=== PATIENT | male | born 1970 | race Caucasian/White ===

== ENCOUNTER 2016-12-23 09:27 | Emergency (ER) | payer BC ==
[2016-12-23] MEDS ORDERED: ONDANSETRON 4 MG/2 ML VIAL IVP ONE (09:48)
[2016-12-23] MEDS ORDERED: Sodium Chloride 0.9% 1,000 ML PRIMARY IV ONE (09:48)
--- NOTE | 2016-12-23 09:51 | PDOC ---
Upper Extremity Problem HPI - General Chief Complaint: Upper Extremity Problem/Injury Stated Complaint: POST OP BLEEDING Date Seen by Provider: 12/23/16 Time Seen by Provider: 09:46 Source: POSITIVE: Patient Exam Limitations: POSITIVE: No limitations Nurse's Notes Reviewed & Considered: Yes - History of Present Illness Initial Comments: Patient comes in today with a chief complaint of drainage from a surgical wound , and confusion. This morning he called his sister because he had increased drainage from a incision over his right elbow for ulnar nerve reposition. Is having some pain so he took a 5[address] [place] and when his sister was talking to him he was confused unsure of where he was. By the time he arrived here in the emergency room he was alert and oriented to person place and time. He denies any fever chills or sweats, nausea vomiting or diarrhea, shortness of breath, chest pain, headache. Body Location Affected: REPORTS: Upper Extremity (R) Timing: REPORTS: Abrupt Duration: Unknown Severity: Moderate Quality: REPORTS: Other (Serosanguineous exudate from a surgical wound on his right elbow.) Recent Injury: REPORTS: Yes (Surgical incision.) Context of Injury: REPORTS: Incision Location at Time of Onset: REPORTS: Home Modifying Factors: REPORTS: Nothing Exacerbates Similar Symptoms Previously: No Recent Care Received: Treated by MD, Surgery Any Prior Injuries Related to Current Complaint?: Yes (surgical incision of the right elbow and right wrist.) - Patient Home Medications Home Medications: Home Medications Celecoxib [Celebrex] 200 mg PO BEDTIME 12/23/16 Hydrocodone Bit/Acetaminophen [Hydrocodon-Acetaminoph 7.5-325] 1 tab PO Q4H PRN 12/23/16 - Patient Allergies Allergies/Adverse Reactions: Allergies Allergy/AdvReac Type Severity Reaction Status Date / Time No Known Allergies Allergy Verified 12/23/16 09:39 Past Medical History - heen HEENT History: Denies History Cardiovascular History: Denies History Respiratory History: Denies History Gastrointestinal History: Denies History Genitourinary History: Denies History Endocrine History: Denies History Musculoskeletal History: Denies History Neurological History: Denies History Blood Disorders: Denies History Psychiatric History: Denies History Cancer History: Denies History History of MDRO: No Alcohol Use: Heavy Substance Use Type: None Previous Surgical History: No Anesthesia Reactions: No Malignant Hyperthermia: No Significant Family History: No pertinent family hx ROS - Limitations ROS Limitations: No Limitations Constitution: REPORTS: Denies Symptoms Cardiovascular: REPORTS: Denies Cardiac Symptoms Respiratory: REPORTS: Denies Resp Symptoms Neurological: REPORTS: Denies Neuro Symptoms Gastrointestinal: REPORTS: Nausea Endocrine: REPORTS: Denies Symptoms Musculoskeletal: REPORTS: Denies MS Symptoms Genitourinary: REPORTS: Denies Symptoms Eyes: REPORTS: Denies Symptoms ENT: REPORTS: Denies Symptoms Skin: REPORTS: Excessive Bruising, Other (Serosanguineous exudate from right elbow incision) Lympathic: REPORTS: Denies Lympathic Symptoms Immunologic: POSITIVE: Denies Symptoms Psychiatric: POSITIVE: Denies Psych Symptoms Upper Extremity Problem Exam - General Appearance General Appearance: POSITIVE: Alert, Cooperative, No Acute Distress, No Evidence of Trauma - Upper Extremity Upper Extremity: POSITIVE: Non-Tender, Tenderness, Swelling, Joint Swelling Vascular: POSITIVE: No Vascular Compromise, Full Pulses - Skin Skin: POSITIVE: Normal Color, Warm, Dry, No Rash - Neuro / Psych Peripheral Neuro Exam: POSITIVE: Sensation Normal, Motor Normal Central Neuro Exam: POSITIVE: Oriented to Person, Oriented to Place, Oriented to Time, CN's Normal as Tested, Normal Speech, Normal Cognition, Appropriate Mood, Appropriate Affect - HEENT HEENT: POSITIVE: Head Inspection Nml, Eyes Inspection Nml, Ears Inspection Nml, Nose Inspection Nml, PERRL, EOMI - Neck/Back Neck / Back: POSITIVE: Normal Inspection - Respiratory / CVS Respiratory / CVS: POSITIVE: No Respiratory Distress, Breath Sounds Normal, Regular Rate & Rhythm, Heart Sounds Normal - Abdomen Abdomen: Soft: (All Quadrants), Normal Bowel Sounds: (All Quadrants), Denies Tenderness: (All Quadrants) Upper Ext Problem Progress - Results Reviewed by me Lab Results Reviewed: Yes Lab Results:: Laboratory Results 12/23/16 Range/Units 10:15 WBC 7.78 (4.8-10.8) 10^3/uL RBC 4.45 L (4.70-6.10) 10^6/uL Hgb 13.5 L (14.0-18.0) g/dL Hct 41.2 L (42.0-52.0) % MCV 92.6 H (80-90) FL MCH 30.3 (27-31) PG MCHC 32.8 L (33-37) g/dL RDW Std Deviation 45.9 (39-50) fL RDW Coeff of Carlo 13.9 (11.5-14.5) % Plt Count 223 (140-350) 10*3/uL MPV 9.9 (7.4-12.2) FL Immature Gran % (Auto) 0.4 (0-5) % Neut % (Auto) 67.9 (50-80) % Lymph % (Auto) 21.2 (10-50) % [place] % (Auto) 8.4 (5-15) % Eos % (Auto) 1.5 (0-8) % Baso % (Auto) 0.6 (0-1) % Immature Gran # (Auto) 0.03 10*3/UL Neut # (Auto) 5.28 10*3/UL Lymph # (Auto) 1.65 10*3/uL [place] # (Auto) 0.65 (0.3-0.8) 10*3/UL Eos # (Auto) 0.12 10*3/UL Baso # (Auto) 0.05 10*3/UL WBC Morphology Comment Normal morphology (NORM) Plt Morphology Comment Normal morphology (NORM) RBC Morph Comment Normal morphology (NORM) Sodium 137 (135-145) meq/L Potassium 4.1 (3.8-5.2) meq/L Chloride 106 (98-112) meq/L Carbon Dioxide 22 L (23-33) meq/L Anion Gap 9 (5-20) BUN 13 (7-22) mg/dL Creatinine 0.8 (0.70-1.50) mg/dL Estimated GFR > 60 (>60 ml/min/1.73m(2)) BUN/Creatinine Ratio 16.25 (6-20) Glucose 84 (78-110) mg/dL Calculated Osmolality 282.0 (267-292) mOsm/kg Calcium 8.6 L (8.7-10.7) mg/dL Magnesium 1.8 (1.6-2.4) mg/dL Total Bilirubin 0.4 (0.3-1.2) mg/dL AST 22 (21-57) IU/L ALT 23 (21-72) IU/L Alkaline Phosphatase 62 (38-126) IU/L Total Protein 7.0 (6.1-8.0) g/dL Albumin 4.0 (3.5-4.8) g/dL Globulin 3.0 (2.50-4.10) g/dL Albumin/Globulin Ratio 1.30 (1.3-2.0) mg/g - Patient's Progress Pain Medication Addressed: POSITIVE: Not Applicable Re-Examine Time:: 10:38 Status: POSITIVE: Improved MDM / ED Course: Patient was evaluated, IV started, blood drawn and sent to the lab for studies. Patient received a liter of normal saline, and Zofran. His dizziness and nausea resolved. Findings: CBC shows a slight anemia with hemoglobin of 13-1/2. WBCs are within normal limits at 7. Compensated metabolic panel is unremarkable. Assessment: Postoperative dizziness most likely related to medication and slight dehydration. Plan: Discharge home, hydration, follow-up with orthopedic surgeon in [facility]. - Consult Counseled: POSITIVE: Patient, Family, RE: Lab Results, RE: DX, RE: Need for F/U Patient Care Time - Estimated PCT Patient Care Time (In Minutes): 15 Vital Signs - VS Reviewed Vital Signs Reviewed: Yes Discharge Clinical Impression: Dizziness Discharge Disposition: Discharged to Home Condition: Stable Patient Instructions Given at Discharge: Dizziness (ED)
[2016-12-23 10:17] LABS: BASOPHILS # (AUTO) 0.05 10*3/UL; BASOPHILS % (AUTO) 0.6 % (0-1); EOSINOPHILS % (AUTO) 1.5 % (0-8); HEMATOCRIT 41.2 % (42.0-52.0); HEMOGLOBIN 13.5 g/dL (14.0-18.0); IMM GRAN % (AUTO) 0.4 % (0-5); IMM GRAN# (AUTO) 0.03 10*3/UL; LYMPHOCYTES # (AUTO) 1.65 10*3/uL; LYMPHOCYTES % (AUTO) 21.2 % (10-50); MEAN CORPUSCULAR HEMOGLOBIN 30.3 PG (27-31); MEAN CORPUSCULAR HGB CONC 32.8 g/dL (33-37); MEAN PLATELET VOLUME 9.9 FL (7.4-12.2); MONOCYTES # (AUTO) 0.65 10*3/UL (0.3-0.8); MONOCYTES % (AUTO) 8.4 % (5-15); NEUTROPHILS # (AUTO) 5.28 10*3/UL; NEUTROPHILS % (AUTO) 67.9 % (50-80); RDW COEFFICIENT OF VARIATION 13.9 % (11.5-14.5); RED BLOOD COUNT 4.45 10^6/uL (4.70-6.10); WHITE BLOOD COUNT 7.78 10^3/uL (4.8-10.8)
[2016-12-23 10:18] LABS: PLATELET MORPHOLOGY COMMENT NORMAL MORPHOLOGY (NORM)
[2016-12-23 10:27] LABS: ASPARTATE AMINO TRANSFERASE 22 IU/L (21-57); BILIRUBIN,TOTAL 0.4 mg/dL (0.3-1.2); BLOOD UREA NITROGEN 13 mg/dL (7-22); BUN/CREATININE RATIO 16.25 (6-20); CALCIUM 8.6 mg/dL (8.7-10.7); CHLORIDE 106 meq/L (98-112); CREATININE 0.8 mg/dL (0.70-1.50); EST GLOMERULAR FILTRATION > 60 (>60 ml/min/1.73m(2)); GLUCOSE 84 mg/dL (78-110); MAGNESIUM 1.8 mg/dL (1.6-2.4); POTASSIUM 4.1 meq/L (3.8-5.2); SODIUM 137 meq/L (135-145)
[2016-12-23 11:27] VITALS: RESP 20; TEMP 97.2
== END 2016-12-23 10:50 | disposition home or self-care (01) ==
LOC: ER 09:27
DX: R42 Dizziness and giddiness (principal); R11.0 Nausea
CPT/HCPCS: 80053; 83735; 84443; 85025; 96361; 96374; 99282; 99283; J2405; J7030